=== PATIENT | female | born 1955 | race Caucasian/White ===

== ENCOUNTER 2021-12-04 00:13 | Day surgery (SDC) | payer MEDICARE, SELFPAY ==
[2021-11-21 13:59] VITALS: BMI 18.5
[2021-12-04 06:12] VITALS: BP 142/73; PULSE 79; RESP 16; TEMP 36.1; O2SAT 98; BMI 18.4
[2021-12-04] MEDS: LACTATED RINGERS 1,000 ML 150 ML IV CONT (06:38)
--- NOTE | 2021-12-04 07:23 | WPDANESEPPF ---
Anes - Initial Pre Proc Eval Procedure: Operation Date: 12/04/21 07:30 Proposed Procedures p Colonoscopy - Francisco Mcgregor MD Date/Time: 12/04/21 07:23 Surgeon: Francisco Mcgregor MD Pre Op Diagnosis: ulcerative colitis Patient Data Age: 66 Gender: F Height: 1.57 m Weight: 45.8 kg Last Vital Signs Temp 97.0 F L 12/04/21 06:12 Pulse 79 12/04/21 06:12 Resp 16 12/04/21 06:12 BP 142/73 H 12/04/21 06:12 Pulse Ox 98 12/04/21 06:12 Allergies Allergy/AdvReac Type Severity Reaction Status Date / Time [facility] Allergy Rash Verified 12/04/21 06:26 Home Medications Medication Instructions Recorded Confirmed Type alprazolam 1 mg tablet 1 mg PO TID PRN 05/03/21 12/04/21 History gabapentin 600 mg tablet 600 mg PO BID 05/03/21 12/04/21 History mesalamine 1.2 gram tablet,delayed 3.6 g PO DAILY 90 Days #270 tablet 05/03/21 12/04/21 Rx release montelukast 10 mg tablet 10 mg PO DAILY 05/03/21 12/04/21 History venlafaxine 150 mg 150 mg PO DAILY 05/03/21 12/04/21 History capsule,extended release 24 hr vedolizumab 300 mg intravenous 300 mg IV .every 8 weeks ea 10/23/21 12/04/21 History solution Patient hx anesthesia problems: none Family hx anesthesia problems: none Results Review: All pre-operative results and documents have been reviewed as part of the pre-operative evaluation. [facility] Past Medical History Medical History Crohn's colitis Headache, migraine Osteoporosis Ulcerative colitis confined to rectum Ulcerative colitis, rectosigmoid Surgical History Surgical History H/O sinus surgery H/O: hysterectomy History of thyroid surgery History of tubal ligation Family History Family History Mother Hypertension Depression Sibling Depression Son Depression Social History Social History Smoking status: Former smoker Tobacco type: cigarettes Alcohol intake: never Substance use: never Living arrangements: with family Gender identity (if verbalized by the patient): Female Sexual Orientation (if Verbalized by the Patient): Straight or Heterosexual Spiritual care concerns: No Agree to blood products: Yes Anes - Eval Final PreProcedure Day of Procedure 12/04/21 07:23 Patient weight: normal Heart: regular rate and rhythm Lungs: clear to auscultation Airway: Mallampati scale class II Neurological: alert and oriented Last oral intake: >/= 8 hours ASA classification: II Emergent: no Anesthetic plan: proceed Anesthesia type and monitoring: general GIVS and standard monitoring Results Review: All pre-operative results and documents have been reviewed as part of the pre-operative evaluation. Informed Consent: The patient's anesthetic plan and its attendant risks and benefits were discussed with the patient/family/POA. Questions were solicited and answers provided to the satisfaction of the patient/family/POA.
--- NOTE | 2021-12-04 07:25 | PM.HPGS ---
History of Present Illness History of Present Illness Consent: Risks, benefits, and alternatives have been discussed and questions answered. Patient agrees to proceed with procedure. Chief complaint: ulcerative colitis Narrative: Julissa Hong is a 66 year old female diagnosed with left sided colitis diagnosed in 2019, now on entyvio and mesalamine doing better, here to assess for mucosa healing. Review of Systems Constitutional: Constitutional: Denies headache(s) and Denies weakness Eyes: Eyes: Denies blurry vision ENT: Reports Normal hearing present, Denies headache(s) and Denies neck pain Cardiovascular: Cardiovascular: Denies chest pain and Denies dyspnea Respiratory: Respiratory: Denies dyspnea Gastrointestinal: Gastrointestinal: Reports no additional gastrointestinal complaints Genitourinary: Genitourinary: Denies dysuria Musculoskeletal: Musculoskeletal: Denies neck pain Integumentary/Breasts: Skin/Breast: Denies dry skin Neurologic: Reports Normal hearing present, Denies headache(s) and Denies weakness Psychiatric: Psychiatric: Denies anxiety Endocrine: Endocrine: Denies change in body appearance Hematologic/Lymphatic: Hematologic/Lymphatic: Denies easy bleeding Allergic/Immunologic: Allergic/Immunologic: Denies urticaria PMFSH Past Medical History Medical History Crohn's colitis Headache, migraine Osteoporosis Ulcerative colitis confined to rectum Ulcerative colitis, rectosigmoid Surgical History Surgical History H/O sinus surgery H/O: hysterectomy History of thyroid surgery History of tubal ligation Family History Family History Mother Hypertension Depression Sibling Depression Son Depression Social History Social History Smoking status: Former smoker Tobacco type: cigarettes Alcohol intake: never Substance use: never Living arrangements: with family Gender identity (if verbalized by the patient): Female Sexual Orientation (if Verbalized by the Patient): Straight or Heterosexual Spiritual care concerns: No Agree to blood products: Yes Meds Home Medications and Allergies Home Medications Medication Instructions Recorded Confirmed Type alprazolam 1 mg tablet 1 mg PO TID PRN 05/03/21 12/04/21 History gabapentin 600 mg tablet 600 mg PO BID 05/03/21 12/04/21 History mesalamine 1.2 gram tablet,delayed 3.6 g PO DAILY 90 Days #270 tablet 05/03/21 12/04/21 Rx release montelukast 10 mg tablet 10 mg PO DAILY 05/03/21 12/04/21 History venlafaxine 150 mg 150 mg PO DAILY 05/03/21 12/04/21 History capsule,extended release 24 hr vedolizumab 300 mg intravenous 300 mg IV .every 8 weeks ea 10/23/21 12/04/21 History solution Allergies Allergy/AdvReac Type Severity Reaction Status Date / Time vilazodone [From Viibryd] Allergy Rash Verified 12/04/21 06:26 Vital Signs Vital Signs - 24 hr 12/04/21 06:12 Temperature 97.0 F L Pulse Rate 79 Respiratory Rate 16 Blood Pressure 142/73 H Pulse Oximetry 98 Exam Const: General: comfortable and no acute distress HENMT: General nose exam: Normal nares present Eyes: General: appearance normal, both eyes and all related structures Neck: Neck: no JVD Resp: Auscultation: clear to auscultation bilaterally Cardio: Rate: regular rate Rhythm: regular rhythm GI: Inspection: non-distended GI Palp: Yes Soft to palpation Skin: General skin exam: normal color Neuro: General: gait normal Speech: normal speech Extrem: General: normal to inspection Psych: Mental Status: mental status grossly normal Assessment and Plan Assessment and plan (1) Ulcerative colitis, rectosigmoid: Code(s): K51.30 - Ulcerative (chronic) rectosigmoiditis without compl
[2021-12-04 07:45] VITALS: BP 103/61; PULSE 85; RESP 21; O2SAT 97
[2021-12-04 07:55] VITALS: BP 136/74; PULSE 80; RESP 24; O2SAT 98
[2021-12-04 08:05] VITALS: BP 142/77; PULSE 70; RESP 19; O2SAT 99
== END 2021-12-04 08:11 | disposition home or self-care (01) ==
PROVIDERS: PCP Family Medicine; Visit Provider Internal Medicine Gastroenterology
PROC: 0DJD8ZZ Inspection of Lower Intestinal Tract, Via Natural or Artificial Opening Endoscopic (ICD-10-PCS; CPT 45378; principal; 2021-12-04 07:30)
DX: K51.30 Ulcerative (chronic) rectosigmoiditis without complications (principal); K51.50 Left sided colitis without complications; K57.30 Diverticulosis of large intestine without perforation or abscess without bleeding; K64.8 Other hemorrhoids; K64.4 Residual hemorrhoidal skin tags; Z87.891 Personal history of nicotine dependence
CPT/HCPCS: 45380; 88305; J2704; J7120

== ENCOUNTER 2024-02-23 15:06 | Outpatient (CLI) | payer MEDICARE, SELFPAY ==
[2024-03-02 15:49] LABS: Calprotectin, Stool 23 mcg/g
== END 2024-02-23 15:07 | disposition home or self-care (01) ==
LOC: ANHLAB 15:09
PROVIDERS: PCP Family Medicine; Visit Provider Nurse Practitioner Family
DX: K51.30 Ulcerative (chronic) rectosigmoiditis without complications (principal)
CPT/HCPCS: 83993

== ENCOUNTER 2025-02-07 15:37 | Outpatient (CLI) | payer MEDICARE, SELFPAY ==
--- NOTE | 2025-02-07 | ECG_ITS ---
Test Date: 2025-02-07 15:59:34 Measurements Intervals [place] Rate: 65 P: 45 CA: 148 QRS: -5 QRSD: 86 T: 51 QT: 404 QTc: 422 Interpretive Statements SINUS RHYTHM LOW QRS VOLTAGE IN PRECORDIAL LEADS [QRS DEFLECTION < 1.0 mV IN CHEST LEADS] BORDERLINE ECG No previous ECG available for comparison Electronically Signed On 02-08-2025 07:14:02 CDT by Landon Guan M.D.
--- OUTSIDE RECORDS SUMMARY | 2025-02-07 15:44 | XMS_ITS | CONTINUITY OF CARE DOCUMENT ---
Author Name jerrod elder Address Unknown Organization [facility] Address [address] [address] [place] [address] Phone [phone] Care Team Providers Care Coater Smoking Pipe Name Role Phone Hawk Acevedo MD Unavailable CARYL THOMPSON MD Unavailable [phone] CARYL THOMPSON MD Unavailable [phone] INSURANCE PROVID[employer] Payer name Policy type / Coverage type [place] red democrat ID [facility] [id number]
--- OUTSIDE RECORDS SUMMARY | 2025-02-07 15:45 | XMS_ITS | Data Portability ---
Author Organization [facility] [employer], Main Office Address [address] [place] [address] Assessment No assessment recorded. Plan of Treatment Reminders Order Date Submit Date Provider Last Modified By Organization Details Last Modified Time Details Appointments None recorded. Lab urinalysis complete, reflex culture 2023 024 IAN Not available 03:35:00 urinalysis, dipstick 2023 024 [email or web address] [facility] [address], [place], [address], 4 14:41:01 lipid panel, serum 2022 023 IAN Not available 19:45:59 hepatic function panel, serum 2022 023 [email or web address] Not available 08:15:21 vitamin D, 25-hydroxy, total, serum 2022 023 IAN Not available 3 07:41:36 iron + total iron-bindin g capacity (TIBC), serum 2022 023 IAN Not available 20:29:25 ferritin, serum or plasma 2022 023 IAN Not available 21:02:35 CBC w/ auto diff 2022 023 IAN Not available 19:22:12 TSH, serum or plasma 2022 023 IAN Not available 21:01:24 hepatic function panel, serum 2022 IAN Not available 19:45:49 erythrocyte sedimentati on rate by westergren method 2022 IAN Not available 07:42:02 vitamin B12, serum 2022 IAN Not available 20:43:00 folate, serum 2022 IAN Not available 20:43:06 Referral None recorded. Procedures None recorded. Surgeries None recorded. Imaging MAMMO, screening, digital, bilateral [address] ([facility]), [address] [place], [address], 4 09:25:13 MAMMO, screening, digital, bilateral [address] ([facility]), [address] [place], [address], 4 08:56:30 DEXA 2022 023 [facility] ([facility]), [address] [place], [address], 4 14:39:34 Medication Orders nitrofurant oin monohydrate /macrocryst als 100 mg capsule 2023 024 [id number], [address] [place], [place], [id number], 4 14:43:54 gabapentin 600 mg tablet 2023 024 [facility] #[id number], [address] [place], [place], [id number], 4 14:50:44 venlafaxine ER 150 mg capsule,ext ended release 24 hr 2023 024 [facility]29495, [address], [place], [place], [id number], 14:50:45 Patient TargetsNo targets recorded. Patient Instructions Encounter Date Encounter Id Patient Instructions Last Modified By Organization Details Last Modified Time 01/27/2023 [id number] dementia rating scale-2* Not available 01/28/2023 12:13:48 multi-dimensiona l health assessment questionnaire* Not available 01/28/2023 12:13:57 [facility] Plan and Screening Recommendations Advance Directives - Do you have one? Advance Directives - Do we have your advance directive on file in your health record? Primary Prevention/Interven tion (prevents or decreases the chance of common diseases from occurring) Smoking Risk: Alcohol Misuse Screening: Weight: Physical activity: Nutrition: Fall Risk (screened today): Vaccines Pneumococcal: Influenza: Chronic Disease Risks Stroke: I have no recommendations Act adis diagnosis, Continue current treatment plan Heart Attack: I have no recommendations Act adis diagnosis, Continue current treatment plan Clogging of the Arteries: I have no recommendations Act adis diagnosis, Continue current treatment plan Diabetes: Active diagnosis, Continue current treatment plan Secondary Prevention/Interven tion (detects treatable diseases before they may cause symptoms, disability, or ) Breast Cancer Screening with mammogram: Your next mammogram: Ordered Cervical/Uterine/Ov kamlesh Cancer Screening: Osteoporosis Screening: Your next DEXA in: Ordered Date Screening Last Performed: Colon Cancer Screening: Date Screening Last Performed: Eye Disease Screening: Dementia Risk: Depression Screening: Active diagnosis, Continue current treatment plan Not available 01/28/2023 08:26:14 02/01/2024 [id number] [facility] Plan and Screening Recommendations Advance Directives - Do you have one? Advance Directives - Do we have your advance directive on file in your health record? Primary Prevention/Interven tion (prevents or decreases the chance of common diseases from occurring) Smoking Risk: Alcohol Misuse Screening: Weight: Physical activity: Nutrition: Fall Risk (screened today): Vaccines Pneumococcal: Influenza: Your next one in the fall of this year Chronic Disease Risks Stroke: I have no recommendations Act adis diagnosis, Continue current treatment plan Heart Attack: I have no recommendations Act adis diagnosis, Continue current treatment plan Clogging of the Arteries: I have no recommendations Act adis diagnosis, Continue current treatment plan Diabetes: Active diagnosis, Continue current treatment plan Secondary Prevention/Interven tion (detects treatable diseases before they may cause symptoms, disability, or ) Breast Cancer Screening with mammogram: Cervical/Uterine/Ov akmlesh Cancer Screening: Osteoporosis Screening: Date Screening Last Performed: Colon Cancer Screening: Date Screening Last Performed: Eye Disease Screening: Dementia Risk: Depression Screening: Active diagnosis, Continue current treatment plan Not available 02/01/2024 14:51:49 Reason for Referral None Reported. Results Created Date Observation Date Name Description Value Unit Range Abnormal Flag Note LastModifiedBy Organization Detail LastModifiedTime 08/22/20 22 08/23/2022 VITAM IN D,25- OH,TO NATHAN,I A vitamin D,25-oh,tota l,ia 56 NG/mL 30-100 normal Vitam in D Statu s 25-OH Vitam in D: Defic iency : <20 ng/mL Insuf ficie ncy: 20 - 29 ng/mL Optim al: > or = 30 ng/mL For 25-OH Vitam in D testi ng on patie nts on D2-brumfield pplem entat ion and patie nts for whom quant itati on of D2 and D3 fract ions is requi red, the [facility] Assur eD(TM ) 25-OH VIT D, (D2,D 3), LC/MS /MS is recom catrachita d: order code 81155 (rubina ents >2yrs ). See Note 1 Note 1 For addit ional infor sher abdi refer to http: //merle Cervantes stDchristin gnost ics.c om/fa q/FAQ 199 (This link is being provi ded for infor magno mata/ educkarla murcia l purpo ses only. ) Not Available [facility] [address], [address], 08/23/2022 07:46:54 08/22/20 22 08/23/2022 CBC (INCL UDES DIFF/ PLT) white blood cell count 6.5 thous and/u L 3.8-10 .8 normal Not Available [address], [address], 08/23/2022 07:46:53 08/22/20 22 08/23/2022 CBC (INCL UDES DIFF/ PLT) red blood cell count 3.77 ranjan on/uL 3.80-5 .10 low Not Available [address], [address], 08/23/2022 07:46:53 08/22/20 22 08/23/2022 CBC (INCL UDES DIFF/ PLT) hemoglobin 11.9 g/dL 11.7-1 5.5 normal Not Available [address], [address], 08/23/2022 07:46:53 08/22/20 22 08/23/2022 CBC (INCL UDES DIFF/ PLT) hematocrit 35.0 % 35.0-4 5.0 normal Not Available [address], [address], 08/23/2022 07:46:53 08/22/20 22 08/23/2022 CBC (INCL UDES DIFF/ PLT) RDW 11.4 % 11.0-1 5.0 normal Not Available [address], [address], 08/23/2022 07:46:53 08/22/20 22 08/23/2022 CBC (INCL UDES DIFF/ PLT) MCV 92.8 fL 80.0-1 00.0 normal Not Available [employer] [address], [address], 08/23/2022 07:46:53 08/22/20 22 08/23/2022 CBC (INCL UDES DIFF/ PLT) MCH 31.6 pg 27.0-3 3.0 normal Not Available [address], [address], 08/23/2022 07:46:53 08/22/20 22 08/23/2022 CBC (INCL UDES DIFF/ PLT) MCHC 34.0 g/dL 32.0-3 6.0 normal Not Available [address], [address], 08/23/2022 07:46:53 08/22/20 22 08/23/2022 CBC (INCL UDES DIFF/ PLT) platelet count 319 thous and/u L 140-40 0 normal Not Available [address], [address], 08/23/2022 07:46:53 08/22/20 22 08/23/2022 CBC (INCL UDES DIFF/ PLT) MPV 10.4 fL 7.5-12 .5 normal Not Available [address], [address], 08/23/2022 07:46:53 08/22/20 22 08/23/2022 CBC (INCL UDES DIFF/ PLT) absolute neutrophils 3978 cells /uL 1500-7 800 normal Not Available [address], [address], 08/23/2022 07:46:53 08/22/20 22 08/23/2022 CBC (INCL UDES DIFF/ PLT) absolute lymphocytes 1859 cells /uL 850-39 00 normal Not Available [address], [address], 08/23/2022 07:46:53 08/22/20 22 08/23/2022 CBC (INCL UDES DIFF/ PLT) absolute monocytes 410 cells /uL 200-95 0 normal Not Available [address] [place], [address], 08/23/2022 07:46:53 08/22/20 22 08/23/2022 CBC (INCL UDES DIFF/ PLT) absolute eosinophils 163 cells /uL 15-500 normal Not Available [address], [address], 08/23/2022 07:46:53 08/22/20 22 08/23/2022 CBC (INCL UDES DIFF/ PLT) absolute basophils 91 cells /uL 0-200 normal Not Available [address], [address], 08/23/2022 07:46:53 08/22/20 22 08/23/2022 CBC (INCL UDES DIFF/ PLT) neutrophils 61.2 % normal Not Available [address], [address], 08/23/2022 07:46:53 08/22/20 22 08/23/2022 CBC (INCL UDES DIFF/ PLT) lymphocytes 28.6 % normal Not Available [address], [address], 08/23/2022 07:46:53 08/22/20 22 08/23/2022 CBC (INCL UDES DIFF/ PLT) monocytes 6.3 % normal Not Available [address], [address], 08/23/2022 07:46:53 08/22/20 22 08/23/2022 CBC (INCL UDES DIFF/ PLT) eosinophils 2.5 % normal Not Available [address], [address], 08/23/2022 07:46:53 08/22/20 22 08/23/2022 CBC (INCL UDES DIFF/ PLT) basophils 1.4 % normal Not Available [facility] [address], [place], [address], 08/23/2022 07:46:53 08/22/20 22 08/23/2022 HEPAT IC FUNCT ION PANEL protein, total 6.6 g/dL 6.1-8. 1 normal Not Available [address], [address], 08/23/2022 07:46:52 08/22/20 22 08/23/2022 HEPAT IC FUNCT ION PANEL albumin 4.2 g/dL 3.6-5. 1 normal Not Available [address], [address], 08/23/2022 07:46:52 08/22/20 22 08/23/2022 HEPAT IC FUNCT ION PANEL globulin 2.4 g/dL_ (calc ) 1.9-3. 7 normal Not Available [address], [address], 08/23/2022 07:46:52 08/22/20 22 08/23/2022 HEPAT IC FUNCT ION PANEL albumin/glob ulin ratio 1.8 (calc ) 1.0-2. 5 normal Not Available [address], [address], 08/23/2022 07:46:52 08/22/20 22 08/23/2022 HEPAT IC FUNCT ION PANEL bilirubin, total 0.3 mg/dL 0.2-1. 2 normal Not Available [address], [address], 08/23/2022 07:46:52 08/22/20 22 08/23/2022 HEPAT IC FUNCT ION PANEL bilirubin, direct 0.1 mg/dL < or = 0.2 normal Not Available [address], [address], 08/23/2022 07:46:52 08/22/20 22 08/23/2022 HEPAT IC FUNCT ION PANEL bilirubin, indirect 0.2 mg/dL _(zeferino c) 0.2-1. 2 normal Not Available [address], [address], 08/23/2022 07:46:52 08/22/20 22 08/23/2022 HEPAT IC FUNCT ION PANEL alkaline phosphatase 69 U/L 37-153 normal Not Available [facility] [email or web address] [address] [address] [place], [address], 08/23/2022 07:46:52 08/22/20 22 08/23/2022 HEPAT IC FUNCT ION PANEL AST 19 U/L 10-35 normal Not Available [address], [address], 08/23/2022 07:46:52 08/22/20 22 08/23/2022 HEPAT IC FUNCT ION PANEL ALT 16 U/L 6-29 normal Not Available [address] [address] [place], [address], 08/23/2022 07:46:52 08/22/20 22 08/23/2022 BASIC METAB OLIC PANEL glucose 95 mg/dL 65-139 normal Non-f astin g refer ence inter chandni Not Available [address], [address], 08/23/2022 07:46:52 08/22/20 22 08/23/2022 BASIC METAB OLIC PANEL urea nitrogen (BUN) 10 mg/dL 7-25 normal Not Available [address], [address], 08/23/2022 07:46:52 08/22/20 22 08/23/2022 BASIC METAB OLIC PANEL creatinine 0.58 mg/dL 0.50-1 .05 normal Not Available [address], [address], 08/23/2022 07:46:52 08/22/20 22 08/23/2022 BASIC METAB OLIC PANEL eGFR 99 mL/mi n/1.7 3m2 > or = 60 normal The eGFR is based on the CKD-E PI 2020 equat ion. To calcu late the new eGFR from a previ ous Creat inine or Cysta tin C resul t, go to https ://chante wolfe.sebastian phillips.o leighann/lorie hongal s/ kdoqi /gfr% 5Fcal culat or Not Available [employer] [address] [address] [place], [address], 08/23/2022 07:46:52 08/22/20 22 08/23/2022 BASIC METAB OLIC PANEL BUN/creatini ne ratio not applic able (calc ) 6-22 Not Available [address] [address] [place], [address], 08/23/2022 07:46:52 08/22/20 22 08/23/2022 BASIC METAB OLIC PANEL sodium 141 mmol/ L 135-14 6 normal Not Available [employer] [address] [address] [place], [address], 08/23/2022 07:46:52 08/22/20 22 08/23/2022 BASIC METAB OLIC PANEL potassium 4.1 mmol/ L 3.5-5. 3 normal Not Available [employer] [address] [address] [place], [address], 08/23/2022 07:46:52 08/22/20 22 08/23/2022 BASIC METAB OLIC PANEL chloride 104 mmol/ L 98-110 normal Not Available [employer] [address] [address] [place], [address], 08/23/2022 07:46:52 08/22/20 22 08/23/2022 BASIC METAB OLIC PANEL carbon dioxide 32 mmol/ L 20-32 normal Not Available [employer] [address] [address] [place], [address], 08/23/2022 07:46:52 08/22/20 22 08/23/2022 BASIC METAB OLIC PANEL calcium 9.5 mg/dL 8.6-10 .4 normal Not Available [address], [address], 08/23/2022 07:46:52 08/22/20 22 08/23/2022 LIPID PANEL , STAND EDNA LDL-choleste rol 146 mg/dL _(zeferino c) high Refer ence range : <100 Purnima able range <100 mg/dL for prima ry preve ntion ; <70 mg/dL for patie nts with CHD or diabe tic patie nts with > or = 2 CHD risk facto rs. LDL-C is now calcu lated using the Aziza n-Hop kins calcu latio n, which is a valid ated novel sharee yosti aggie de la fuentete r accur acy than the Fried felicity equat ion in the estim ation of LDL-C . Aziza carney SS et al. RICKY. 2013; 310(1 9): 2061- 2068 (http ://ed ucati on.Qu romarioLogicLoop. com/f aq/FA Q164) Not Available [address], [address], 08/23/2022 07:46:51 08/22/20 22 08/23/2022 LIPID PANEL , STAND EDNA cholesterol, total 230 mg/dL <200 high Not Available [address], [address], 08/23/2022 07:46:51 08/22/20 22 08/23/2022 LIPID PANEL , STAND EDNA HDL cholesterol 54 mg/dL > or = 50 normal Not Available [address], [address], 08/23/2022 07:46:51 08/22/20 22 08/23/2022 LIPID PANEL , STAND EDNA triglyceride s 167 mg/dL <150 high Not Available [address] [address] [place], [address], 08/23/2022 07:46:51 08/22/20 22 08/23/2022 LIPID PANEL , STAND EDNA chol/HDLC ratio 4.3 (calc ) <5.0 normal Not Available [facility] [address] [place], [address], 08/23/2022 07:46:51 08/22/20 22 08/23/2022 LIPID PANEL , STAND EDNA non HDL cholesterol 176 mg/dL _(zeferino c) <130 high For patie nts with diabe antione plus 1 major ASCVD risk facto r, treat ing to a non-H DL-C goal of <100 mg/dL (LDL- C of <70 mg/dL ) is consi dered a thera peuti c optio n. Not Available [facility] [address] [address] , [place], [address], 08/23/2022 07:46:51 07/29/20 23 07/29/2023 CBC/C OMPLE TE BLD COUNT W/DIF F white blood cells 5.7 x10'3 /uL 4.2-10 .8 Not Available [facility] (Lab) [address] [place], [address], 07/29/2023 19:22:12 07/29/20 23 07/29/2023 CBC/C OMPLE TE BLD COUNT W/DIF F red blood cells 4.00 x10'6 /uL 3.80-5 .20 Not Available [facility] (Lab) [address] [place], [address], 07/29/2023 19:22:12 07/29/20 23 07/29/2023 CBC/C OMPLE TE BLD COUNT W/DIF F hemoglobin 12.7 g/dL 12.0-1 5.6 Not Available [facility] (Lab) [address] [place], [address], 07/29/2023 19:22:12 07/29/20 23 07/29/2023 CBC/C OMPLE TE BLD COUNT W/DIF F hematocrit 39.0 % 35.7-4 5.7 Not Available [facility] (Lab) [address] [place], [address], 07/29/2023 19:22:12 07/29/2007/29/2023 CBC/C OMPLE TE BLD COUNT W/DIF F mean red cell volume 97.5 fL 82.0-9 9.0 Not Available [facility] (Lab) [address] [place], [address], 07/29/2023 19:22:12 07/29/2007/29/2023 CBC/C OMPLE TE BLD COUNT W/DIF F mean red cell hemoglobin 31.8 pg 27.0-3 3.0 Not Available [facility] (Lab) [address] [place], [address], 07/29/2023 19:22:12 07/29/2007/29/2023 CBC/C OMPLE TE BLD COUNT W/DIF F mean RBC HGB concentratio n 32.6 g/dL 31.0-3 6.0 Not Available [facility] (Lab) [address] [place], [address], 07/29/2023 19:22:12 07/29/2007/29/2023 CBC/C OMPLE TE BLD COUNT W/DIF F red cell distribution width 12.3 % 11.8-1 5.5 Not Available [facility] (Lab) [address] [place], [address], 07/29/2023 19:22:12 07/29/20 23 07/29/2023 CBC/C OMPLE TE BLD COUNT W/DIF F platelets 330 x10'3 /uL 150-40 0 Not Available [facility] (Lab) [address] [place], [address], 07/29/2023 19:22:12 07/29/2007/29/2023 CBC/C OMPLE TE BLD COUNT W/DIF F mean platelet volume 10.7 fL 9.0-12 .4 Not Available [facility] (Lab) [address] [place], [address], 07/29/2023 19:22:12 07/29/2007/29/2023 CBC/C OMPLE TE BLD COUNT W/DIF F neutrophils 56.8 % 39.0-7 2.0 Not Available [facility] (Lab) [address] [place], [address], 07/29/2023 19:22:12 07/29/2007/29/2023 CBC/C OMPLE TE BLD COUNT W/DIF F lymphocytes 31.1 % 16.0-4 7.0 Not Available [facility] (Lab) [address] [place], [address], 07/29/2023 19:22:12 07/29/2007/29/2023 CBC/C OMPLE TE BLD COUNT W/DIF F monocytes 7.3 % 5.0-12 .0 Not Available [facility] (Lab) [address] [place], [address], 07/29/2023 19:22:12 07/29/2007/29/2023 CBC/C OMPLE TE BLD COUNT W/DIF F eosinophils 3.3 % 1.0-7. 0 Not Available [facility] (Lab) [address] [place], [address], 07/29/2023 19:22:12 07/29/20 23 07/29/2023 CBC/C OMPLE TE BLD COUNT W/DIF F basophils 1.2 % 0.0-2. 0 Not Available [facility] (Lab) [address] [place], [address], 07/29/2023 19:22:12 07/29/2007/29/2023 CBC/C OMPLE TE BLD COUNT W/DIF F immature granulocytes 0.3 % 0.00-0 .50 Not Available [facility] (Lab) [address] [place], [address], 07/29/2023 19:22:12 07/29/2007/29/2023 CBC/C OMPLE TE BLD COUNT W/DIF F neutrophils, absolute count 3.24 x10'3 /uL 1.5-8. 0 Not Available [facility] (Lab) [address] [place], [address], 07/29/2023 19:22:12 07/29/2007/29/2023 CBC/C OMPLE TE BLD COUNT W/DIF F lymphocytes, absolute count 1.78 x10'3 /uL 1.07-3 .43 Not Available [facility] (Lab) [address] [place], [address], 07/29/2023 19:22:12 07/29/2007/29/2023 CBC/C OMPLE TE BLD COUNT W/DIF F monocytes, absolute count 0.42 x10'3 /uL 0.29-0 .99 Not Available [facility] (Lab) [address] [place], [address], 07/29/2023 19:22:12 07/29/20 23 07/29/2023 CBC/C OMPLE TE BLD COUNT W/DIF F eosinophils, absolute count 0.19 x10'3 /uL 0.02-0 .53 Not Available [facility] (Lab) [address] [place], [address], 07/29/2023 19:22:12 07/29/20 23 07/29/2023 CBC/C OMPLE TE BLD COUNT W/DIF F basophils, absolute count 0.07 x10'3 /uL 0.01-0 .08 Not Available [facility] (Lab) [address] [place], [address], 07/29/2023 19:22:12 07/29/20 23 07/29/2023 CBC/C OMPLE TE BLD COUNT W/DIF F immature granulocytes ,absolute 0.02 x10'3 /uL 0.00-0 .05 Not Available [facility] (Lab) [address] [place], [address], 07/29/2023 19:22:12 07/29/20 23 07/29/2023 CBC/C OMPLE TE BLD COUNT W/DIF F nucleated red blood cells 0.0 % -0 Not Available [facility] (Lab) [address] [place], [address], 07/29/2023 19:22:12 07/29/20 23 07/29/2023 CBC/C OMPLE TE BLD COUNT W/DIF F NRBC# 0.00 x10'3 /uL Not Available [facility] (Lab) [address] [place], [address], 07/29/2023 19:22:12 07/29/20 23 07/29/2023 SEDIM ENTAT ION RATE erythrocyte sedimentatio n rate 34 mm/HR 0-20 high Not Available Not Available 07/06 19:26:54 07/29/2007/29/2023 HEPAT IC/LI AJITH PANEL alkaline phosphatase 79 U/L 38-126 Not Available [facility] (Lab) [address] [place], [address], 07/29/2023 19:45:49 07/29/20 23 07/29/2023 HEPAT IC/LI AJITH PANEL alanine aminotransfe rase 24 U/L 0-35 Not Available [facility] (Lab) [address] [place], [address], 07/29/2023 19:45:49 07/29/2007/29/2023 HEPAT IC/LI AJITH PANEL aspartate aminotransfe rase 28 U/L 15-37 Not Available [facility] (Lab) [address] [place], [address], 07/29/2023 19:45:49 07/29/2007/29/2023 HEPAT IC/LI AJITH PANEL bilirubin, total 0.30 mg/dL 0.20-1 .30 Not Available [facility] (Lab) [address] [place], [address], 07/29/2023 19:45:49 07/29/2007/29/2023 HEPAT IC/LI AJITH PANEL bilirubin, conjugated (direct) 0.00 mg/dL 0.00-0 .30 Not Available [facility] (Lab) [address] [place], [address], 07/29/2023 19:45:49 07/29/2007/29/2023 HEPAT IC/LI AJITH PANEL biliurubin,u ncong. (indirect) 0.10 mg/dL 0.00-1 .1 Not Available [facility] (Lab) [address] [place], [address], 07/29/2023 19:45:49 07/29/2007/29/2023 HEPAT IC/LI AJITH PANEL total protein 7.1 g/dL 6.3-8. 2 Not Available [facility] (Lab) [address] [place], [address], 07/29/2023 19:45:49 07/29/2007/29/2023 HEPAT IC/LI AJITH PANEL albumin 4.1 g/dL 3.0-4. 4 Not Available [facility] (Lab) [address] [place], [address], 07/29/2023 19:45:49 07/29/2007/29/2023 HEPAT IC/LI AJITH PANEL globulin 3.0 g/dL 2.6-4. 2 Not Available [facility] (Lab) [address] [place], [address], 07/29/2023 19:45:49 07/29/2007/29/2023 HEPAT IC/LI AJITH PANEL A/G ratio 1.4 ratio 1.0-2. 0 Not Available [facility] (Lab) [address] [place], [address], 07/29/2023 19:45:49 07/29/2007/29/2023 LIPID PANEL cholesterol 257 mg/dL 140-19 9 high NIH KATHIE NSUS RECOM MENDA TION FOR FREDRICK STERO L: ADULT CHILD LOW RISK: <200 <170 BORDE RLINE : <200- 239 ----- HIGH RISK: >240 >200 Not Available [facility] (Lab) [address] [place], [address], 07/29/2023 19:45:59 07/29/2007/29/2023 LIPID PANEL triglyceride s 178 mg/dL 0-150 high NIH KATHIE NSUS REPOR T RECOM MENDA TION FOR TRIGL YCERI MURRAY: ADULT CHILD LOW RISK: <150 ----- BODER LINE: 150-1 99 ----- HIGH RISK: >200 ----- Not Available [facility] (Lab) [address] [place], [address], 07/29/2023 19:45:59 07/29/2007/29/2023 LIPID PANEL HDL cholesterol 54 mg/dL 40- Not Available [facility] (Lab) [address] [place] [address], [address], 07/29/2023 19:45:59 07/29/2007/29/2023 LIPID PANEL LDL cholesterol, calculated 167 mg/dL 0-130 high NIH KATHIE NSUS REPOR T RECOM MENDA TIONS FOR LDL: ADULT CHILD LOW RISK <130 <110 (OPTI MAL LDL) <100 ----- BORDE RLINE : 130-1 59 ----- HIGH RISK: >160 >130 A TRIGL YCERI DE RESUL T >400 INVAL IDATE S THE CALCU LATIO N FOR LDL FRACT IONAT ION - THE LDL RESUL T WILL NOT BE REPOR GUILLERMINA. Not Available [facility] (Lab) [address] [place], [address], 07/29/2023 19:45:59 07/29/2007/29/2023 VITAM IN D 25-HY DROXY vd25oh 67.4 NG/mL 30-100 Vitam in D Statu s: Defic ient: <20 ng/mL Insuf ficie nt: 20-29 ng/mL Suffi cient : 30-10 0 ng/mL Not Available Not Available 07/29/2023 19:53:46 07/29/2007/29/2023 IRON/ TIBC PANEL total iron binding capacity 271 mcg/d L 265-47 5 Not Available [facility] (Lab) [address] [place], [address], 07/29/2023 20:44:47 07/29/2007/29/2023 IRON/ TIBC PANEL % transferrin saturation 27 % 20-55 Not Available [facility] (Lab) [address] [place], [address], 07/29/2023 20:44:47 07/29/2007/29/2023 IRON/ TIBC PANEL unsaturated iron bind capacity 198 mcg/d L 126-38 2 Not Available [facility] (Lab) [address] [place], [address], 07/29/2023 20:44:47 07/29/2007/29/2023 IRON/ TIBC PANEL iron 73 mcg/d L 42-175 Not Available [facility] (Lab) [address] [place], [address], 07/29/2023 20:44:47 07/29/2007/29/2023 VITAM IN B12 (DANIS HOLLY ) vb12 835 pg/mL 239-93 1 Not Available [facility] (Lab) [address] [place], [address], 07/29/2023 20:43:00 07/29/20 23 07/29/2023 FOLAT E, SERUM /PLAS MA folate >20.0 NG/mL 2.76-2 0.0 Not Available [facility] (Lab) [address] [place], [address], 07/29/2023 20:43:06 07/29/2007/29/2023 TSH thyroid-stim ulating hormone 0.464 uIU/m L 0.465- 4.680 low Not Available [facility] (Lab) [address] [place], [address], 07/29/2023 21:01:24 07/29/2007/29/2023 TESFAYE TIN ferritin 25 NG/mL 11.1-2 64 Not Available [facility] (Lab) [address] [place], [address], 07/29/2023 21:02:35 10/02/20 23 10/09/2023 TSI (THYR OID STIMU LATIN G IMMUN OGLOB ULIN) tsi <89 %_bas glory <140 Thyro id stimu latin g immun oglob ulins (TSI) can engag e the TSH glassware verifier tors resul ting in hyper thyro idism in [facility]' disea se patie nts. TSI level s can be usefu l in monit oring the clini zeferino outco me of [facility]' disea se as well as asses sing the poten tial for hyper thyro idism from mater nal-f etal trans meghan. TSI resul ts great er than or equal to (>=) 140% of the Refer ence Contr ol are consi dered posit adis. NOTE: A serum TSH level great er than 350 micro -Inte rnati onal Units /mL can inter fere with the TSI bioas say and poten tiall y give false posit adis resul ts. Patie nts who are pregn ant and are suspe cted of havin g hyper thyro idism shoul d have both TSI and human Chori onic Gonad otrop in (hCG) tests measu red. A serum hCG level great er than 40,62 5 mIU/m L can inter fere with the TSI bioas say and may give false negat adis resul ts. In these patie nts it is recom catrachita d that a secon d TSI be obtai juwan when the hCG kathie ntrat ion falls below 40,62 5 mIU/m L (usua lly after appro ximat john 20-we eks gesta tion) . The john tical perfo rmanc e meghan cteri stics of this assay have been deter mined by [facility] . The modif icati ons have not been clear ed or appro yaw by the FDA. This assay has been valid ated pursu ant to the CLIA regul ation s and is used for clini zeferino purpo ses. Not Available [facility] [address], [address], 10/09/2023 21:02:51 10/02/20 23 10/09/2023 THYRO ID PEROX IDASE ANTIB ODIES thyroid peroxidase antibodies 1 IU/mL <9 Not Available [facility] [address] [place], [address], 10/09/2023 21:02:52 10/02/20 23 10/09/2023 T4, FREE T4, free 0.9 NG/dL 0.8-1. 8 normal Not Available [facility] [address], [address], 10/09/2023 21:02:53 10/02/20 23 10/09/2023 TSH TSH 1.35 mIU/L 0.40-4 .50 normal Not Available [facility] [address] [place], [address], 10/09/2023 21:02:54 02/01/20 24 02/01/2024 URINA LYSIS COMPL ETE/I RIS W/RFX color YELLOW Not Available [facility] (Lab) [address] [place], [address], 02/01/2024 21:27:11 02/01/20 24 02/01/2024 URINA LYSIS COMPL ETE/I RIS W/RFX appear TURBID abnormal Not Available [facility] (Lab) [address] [place], [address], 02/01/2024 21:27:11 02/01/20 24 02/01/2024 URINA LYSIS COMPL ETE/I RIS W/RFX specific gravity 1.010 1.001- 1.030 Not Available [facility] (Lab) [address] [place], [address], 02/01/2024 21:27:11 02/01/20 24 02/01/2024 URINA LYSIS COMPL ETE/I RIS W/RFX pH 6.0 pH_un its 5.0-9. 0 Not Available [facility] (Lab) [address] [place], [address], 02/01/2024 21:27:11 02/01/20 24 02/01/2024 URINA LYSIS COMPL ETE/I RIS W/RFX leukocytes >/=500 gisella/u L negati ve- abnormal Not Available [facility] (Lab) [address] [place], [address], 02/01/2024 21:27:11 02/01/20 24 02/01/2024 URINA LYSIS COMPL ETE/I RIS W/RFX nitrite NEGATI VE negati ve- Not Available [facility] (Lab) [address] [place], [address], 02/01/2024 21:27:11 02/01/20 24 02/01/2024 URINA LYSIS COMPL ETE/I RIS W/RFX protein NEGATI VE mg/dL negati ve- Not Available [facility] (Lab) [address] [place], [address], 02/01/2024 21:27:11 02/01/20 24 02/01/2024 URINA LYSIS COMPL ETE/I RIS W/RFX glucose NORMAL mg/dL normal - Not Available [facility] (Lab) [address] [place], [address], 02/01/2024 21:27:11 02/01/20 24 02/01/2024 URINA LYSIS COMPL ETE/I RIS W/RFX ketones NEGATI VE mg/dL negati ve- Not Available [facility] (Lab) [address] [place], [address], 02/01/2024 21:27:11 02/01/20 24 02/01/2024 URINA LYSIS COMPL ETE/I RIS W/RFX urobilinogen NORMAL mg/dL normal - Not Available [facility] (Lab) [address] [place], [address], 02/01/2024 21:27:11 02/01/20 24 02/01/2024 URINA LYSIS COMPL ETE/I RIS W/RFX bilirubin NEGATI VE mg/dL negati ve- Not Available [facility] (Lab) [address] [place], [address], 02/01/2024 21:27:11 02/01/20 24 02/01/2024 URINA LYSIS COMPL ETE/I RIS W/RFX blood NEGATI VE mg/dL negati ve- abnormal Not Available [facility] (Lab) [address] [place], [address], 02/01/2024 21:27:11 02/01/20 24 02/01/2024 URINA LYSIS COMPL ETE/I RIS W/RFX color YELLOW Not Available [facility] (Lab) [address] [place], [address], 02/01/2024 21:35:02 02/01/20 24 02/01/2024 URINA LYSIS COMPL ETE/I RIS W/RFX appear TURBID abnormal Not Available [facility] (Lab) [address] [place], [address], 02/01/2024 21:35:02 02/01/20 24 02/01/2024 URINA LYSIS COMPL ETE/I RIS W/RFX specific gravity 1.010 1.001- 1.030 Not Available [facility] (Lab) [address] [place], [address], 02/01/2024 21:35:02 02/01/20 24 02/01/2024 URINA LYSIS COMPL ETE/I RIS W/RFX pH 6.0 pH_un its 5.0-9. 0 Not Available [facility] (Lab) [address] [place], [address], 02/01/2024 21:35:02 02/01/20 24 02/01/2024 URINA LYSIS COMPL ETE/I RIS W/RFX leukocytes >/=500 gisella/u L negati ve- abnormal Not Available [facility] (Lab) [address] [place], [address], 02/01/2024 21:35:02 02/01/20 24 02/01/2024 URINA LYSIS COMPL ETE/I RIS W/RFX nitrite NEGATI VE negati ve- Not Available [facility] (Lab) [address] [place], [address], 02/01/2024 21:35:02 02/01/20 24 02/01/2024 URINA LYSIS COMPL ETE/I RIS W/RFX protein NEGATI VE mg/dL negati ve- Not Available [facility] (Lab) [address] [place], [address], 02/01/2024 21:35:02 02/01/20 24 02/01/2024 URINA LYSIS COMPL ETE/I RIS W/RFX glucose NORMAL mg/dL normal - Not Available [facility] (Lab) [address] [place], [address], 02/01/2024 21:35:02 02/01/20 24 02/01/2024 URINA LYSIS COMPL ETE/I RIS W/RFX ketones NEGATI VE mg/dL negati ve- Not Available [facility] (Lab) [address] [place], [address], 02/01/2024 21:35:02 02/01/20 24 02/01/2024 URINA LYSIS COMPL ETE/I RIS W/RFX urobilinogen NORMAL mg/dL normal - Not Available [facility] (Lab) [address] [place], [address], 02/01/2024 21:35:02 02/01/20 24 02/01/2024 URINA LYSIS COMPL ETE/I RIS W/RFX bilirubin NEGATI VE mg/dL negati ve- Not Available [facility] (Lab) [address] [place], [address], 02/01/2024 21:35:02 02/01/20 24 02/01/2024 URINA LYSIS COMPL ETE/I RIS W/RFX blood NEGATI VE mg/dL negati ve- Not Available [facility] (Lab) [address] [place], [address], 02/01/2024 21:35:02 02/01/20 24 02/01/2024 URINA LYSIS COMPL ETE/I RIS W/RFX white blood cells 21-40 /i??h pfi?? 0-8 abnormal Not Available [facility] (Lab) [address] [place], [address], 02/01/2024 21:35:02 02/01/20 24 02/01/2024 URINA LYSIS COMPL ETE/I RIS W/RFX red blood cells 0-4 /i??h pfi?? 0-4 Not Available [facility] (Lab) [address] [place], [address], 02/01/2024 21:35:02 02/01/20 24 02/01/2024 URINA LYSIS COMPL ETE/I RIS W/RFX bacteria OCCASI ONAL abnormal Not Available [facility] (Lab) [address] [place], [address], 02/01/2024 21:35:02 02/01/20 24 02/01/2024 URINA LYSIS COMPL ETE/I RIS W/RFX mucous OCCASI ONAL /i??l pfi?? abnormal Not Available [facility] (Lab) [address] [place], [address], 02/01/2024 21:35:02 02/01/20 24 02/01/2024 URINA LYSIS COMPL ETE/I RIS W/RFX squamous epithelial MANY /i??l pfi?? abnormal Not Available [facility] (Lab) [address] [place], [address], 02/01/2024 21:35:02 02/01/20 24 02/01/2024 CULTU RE URINE urc ===== ===== ===== ===== ===== ===== ===== ===== ===== ===== ===== ===== ===== ===== ===== ===== ===== ===== ===== ===== ===== ===== ===== ===== Speci men NO.: [id number] Exam Statu s: Final Proce dure: CULTU RE URINE ===== ===== ===== ===== ===== ===== ===== ===== ===== ===== ===== ===== ===== ===== ===== ===== ===== ===== ===== ===== ===== ===== ===== ===== Iso/R esult : 01 Esche maday a coli Antim icrob ic/Do se ASHLEY Syste ashley Urine __ ___ ___ Ampic illin <=8 S S Aztre onam <=4 S S Cefot axime <=2 Cipro floxa venkata <=0.2 5 S S Ertap enem <=0.5 SSUP SRES LTS SED RESU Genta micin <=2 [place] [id number] Oxida se React ion N Extra Sensi tive Be NEG Amp/S ulbac chapin <=8/4 S S Ceftr iaxon e <=1 S S Cefta zidim e <=1 S S Cefta zidim e/K Clav <=0.2 5 SUPP RESS Cefot axime /K Clavu <=0.5 SUPP RESS Cefaz wendy <=2 S S Cefep elvin <=2 S S Cefur oxime <=4 S S Levof loxac in <=0.5 S S Merop enem <=1 S S Pip/T azo <=8 S S Trime th/[place] lfa <=2/3 8 S S Tetra cycli ne <=4 S S Tobra mycin 4 S S TS ED R ESUL TS ED R ESUL Cefta zidim e/Yimi maritza <=8 SSUP SRES LTS SED RESU Nitro furan toin <=32 S S Not Available [facility] (Lab) [address] [facility] [place], [address], 02/03/2024 08:06:09 02/01/20 24 02/01/2024 urina lysis , dipst ick Leukocytes (reference range: negative gisella/ l) Small Not Available [address], [place], [address], 02/01/2024 14:35:32 02/01/20 24 02/01/2024 urina lysis , dipst ick Nitrite (reference rage: negative mg/dl) negati ve Not Available [address], [place], [address], 02/01/2024 14:35:32 02/01/20 24 02/01/2024 urina lysis , dipst ick Urobilinogen (reference range: 0.2-1 mg/dl) 0.2 Not Available [address], [place], [address], 02/01/2024 14:35:32 02/01/20 24 02/01/2024 urina lysis , dipst ick Protein (reference range: negative mg/dl) Negati ve Not Available [address], [place], [address], 02/01/2024 14:35:32 02/01/20 24 02/01/2024 urina lysis , dipst ick pH (reference range: 5-7) 6.0 Not Available [address], [place], [address], 02/01/2024 14:35:32 02/01/20 24 02/01/2024 urina lysis , dipst ick Blood (reference range: negative Adonis/ l) Non-He molyze d: Trace Not Available [address], [place], [address], 02/01/2024 14:35:32 02/01/20 24 02/01/2024 urina lysis , dipst ick Specific [place] (reference range: 1.005-1.030) 1.020 Not Available [address], [place], [address], 02/01/2024 14:35:32 02/01/20 24 02/01/2024 urina lysis , dipst ick Ketone (reference range: negative mg/dl) Negati ve Not Available [address], [place], [address], 02/01/2024 14:35:32 02/01/20 24 02/01/2024 urina lysis , dipst ick Bilirubin (reference range: negative mg/dl) Negati ve Not Available [address], [place], [address], 02/01/2024 14:35:32 02/01/20 24 02/01/2024 urina lysis , dipst ick Glucose (reference range: negative mg/dl) Negati ve Not Available [address], [place], [address], 02/01/2024 14:35:32 02/01/20 24 02/01/2024 urina lysis , dipst ick Appearance Slight ly Cloudy Not Available [address], [place], [address], 02/01/2024 14:35:32 02/01/20 24 02/01/2024 urina lysis , dipst ick Color Yellow Not Available [address], [place], [address], 02/01/2024 14:35:32 03/05/20 03/05/2023 [facility] [address] [place] [address] [phone] Ruddy pichardo Name: GABRIELA BEEBEJones Felix Access ion #: [id number] Sex: F : 1955 2 Locati on: RAD Attend ing Physic lincoln: SACHIN ODELL Orderi Physic lincoln: SACHIN ODELL Exam Date: 03/05/20 23 1:29 PM Exam Name: XR DEXA-H IPS PELVIS SPINE Admitt ing Diagno sis(es ): RADIOL OGY REPORT - FINAL EXAM: XR DEXA-H IPS PELVIS SPINE HISTOR Y: MENOPA USAL COMPAR DREA: 2019 TECHNI QUE: TECHNI QUE: Dual energy x-ray of absorp tion examin ation of the bilate ral hips and lumbar spine in AP projec tion was perfor med. FINDIN GS: Lumbar Spine (L1-L4 ): The mean bone minera l densit y is 1.084 g/cm2 hydrox yapati te, correl ating with a T-scor e of -0.9 repres enting a 1.2% increa se from baseli ne. Bilate ral hips: The mean bone minera l densit y is 0.816 g/cm2 calciu m Page 1 of 2 [facility] Ruddy pichardo Name: GRIS Dick CHRIS Felix Access ion #: [id number] Sex: F : 1955 2 Exam Date: 03/05/20 23 1:29 PM Exam Name: XR DEXA-H IPS PELVIS SPINE Admitt ing Diagno sis(es ): hydrox yapati te, correl ating with a T-scor e of -1.5 repres enting 9% decrea se from baseli ne. IMPRES BRIT: 1. The patien t's lumbar spine T-scor e is consis tent with a normal bone densit y. 2. The patien t's bilate ral hip T-scor e is consis tent with osteop enia. Accord ing to the World Health Organi zation , T-scor e values greate r than -1.0 are normal , values betwee n -1.0 and -2.5 are catego rized as osteop enia, T-scor e of -2.5 or more are catego rized as osteop orosis . Create d and electr onical ly signed by: Edward lopez MD Signed Date: 03/05/20 2:38 PM (CT) Dictat ed by: Edward lopez MD (CT) (CT) Page [address] of [address] ([employer]) [address] [place] [address], [address], 02/01/2024 14:39:34 03/05/20 23 03/05/2023 [facility] [address] [address] [phone] Patien t Name: CHRIS BEEBE Elvira Access ion #: [id number] Sex: F : 1955 2 Locati on: RAD Attend ing Physic lincoln: SACHIN ODELL Orderi Physic lincoln: SACHIN ODELL Exam Date: 03/05/20 1:29 PM Exam Name: MG KAPLANKvng BREAST TIFFANY BILAT Admitt ing Diagno sis(es ): MAMMOG MAREK REPORT - FINAL EXAM: MG SCRN BREAST TIFFANY BILAT HISTOR Y: SCREEN ING MAMMOG EDGAR COMPAR DREA: 2020, 2018 TECHNI QUE: Bilate ral CC and MLO views of the breast s were perfor med. Digita l Mammog marek images were obtain ed. CAD (compu ter assist ed detect ion) was utiliz ed. 3D Digita l breast tomosy nthesi s was perfor med and used in the interp retati on of images . FINDIN GS: There are scatte red areas of fibrog landul ar densit y. No masses , asymme tries, suspic ious calcif icatio ns, or stephanie ectura l Page 1 of 2 [facility] Ruddy pichardo Name: CHRIS BEEBE Access ion #: [id number] Sex: F : 1955 2 Exam Date: 03/05/20 1:29 PM Exam Name: MG SCRN BREAST TIFFANY BILAT Admitt ing Diagno sis(es ): distor tion are seen. IMPRES BRIT: BIRADS 1: Assess ment comple te. Negati ve. Recomm end annual screen ing mammog marek. Accord ing to the [employer] o[employer], yearly mammog fabiana are recomm ended starti ng at age 40 and contin uing as long as the woman is in good health . Clinic al Breast Exam should be part of the period ic health exam-a bout every 3 years for women in their 20s and 30s and every year for women 40 and over. Breast self-e xam is an option for women in their 20s. Any breast change noted on the breast self-e xam she would be report ed prompt ly to the [facility] A negati ve mammog marek report should not discou rage follow -up or biopsy of a clinic ally signif icant findin g and/or abnorm ality. Dense breast tissue may obscur e small neopla sms. This ruddy pichardo has been entere d into a mammog marek remind er system with a target date for her next mammog edgar. Create d and electr onical ly signed by: Edward lopez MD Signed Date: 03/05/20 4:22 PM (CT) Dictat ed by: Edward lopez MD (CT) (CT) Page [address] of [address] (Imaging) [address] [place], [address], 02/01/2024 14:37:28 05/23/2005/23/2024 scremayelin boone breas t tiffany, bilat [facility] [address] [place] [address] Pat[place]e pichardo Name: CHRIS BEEBE Access ion #: [id number] Sex: F : 1955 5 Dictat ed By: Sherry Coburn Attend ing Physic lincoln: SACHIN ODELL Orderi ng Physic lincoln: SACHIN ODELL Exam Date: 2023 13:19 PM Exam Name: MG SCRN BREAST TIFFANY BILAT Admitt ing Diagno sis(es ): SCREEN ING MAMMOG EDGAR WITH TOMOSY NTHESI S: REASON FOR EXAM: SCREEN ING COMPAR DREA: MG SCRN BREAST TIFFANY BILAT 3D on DOS: 03/05/23 , MG SCRN BREAST TIFFANY BILAT 3D on DOS: 1, SCREEN ING BREAST TIFFANY, BILAT 3D on DOS: 05/11/19 , DIGITA L MAMM, BILAT SCREEN ING 2D on DOS: 8, DIGITA L MAMM, BILAT SCREEN ING 2D on DOS: 03/10/17 TECHNI QUE: Bilate ral CC and MLO views obtain ed. Images were obtain ed using a Digita l Tomosy nthesi s Unit. Standa rd 2D and 3D Tomosy nthesi s images were review ed. FINDIN GS: BREAST COMPOS ITION: C - The bilate ral breast s are hetero geneou sly dense, which may obscur e small masses . In the right breast , no asymme trical parenc hymal patter n, stephanie ectura l distor tion, pleomo rphic microc alcifi cation s or masses . In the left breast , no asymme trical parenc hymal patter n, stephanie ectura l distor tion, pleomo rphic microc alcifi cation s or masses . IMPRES BRIT: No findin gs of malign tom. FOLLOW UP RECOMM ENDATI ON: Recomm end annual mammog edgar. BIRADS : 2 - Benign Page 1 [facility] [address] [place] [address] [place] t Name: CHRIS BEEBE Access ion #: [id number] Sex: F : 1955 5 Dictat ed By: Sherry Coburn Attend ing Physic lincoln: PAIGE PRYOR Orderi Physic lincoln: SACHIN ODELL Exam Date: 2023 13:19 PM Exam Name: MG SCRN BREAST TIFFANY BILAT Admitt ing Diagno sis(es ): Electr onical ly Signed by: Sherry Coburn at 2023 14:39: 05 PM Page 2 [email or web address] [facility] ([facility]) [address] [place], [address], 05/24/2024 14:32:04 Result Notes None recorded. Problems Name Problem SNOMED Code Status Onset Date Resolution Date Notes Provider Name and Address Organization Details Recorded Time Irritable bowel syndrome 20293477 Active Not Available [facility] 3 01:25:45 Herpes labialis 5901449 Active Not Available [employer] 3 01:25:45 Acute sinusitis 79354005 Active Not Available [facility] 3 01:25:46 Blood chemistry outside reference range 182939269 Active Not Available [employer] 3 01:25:46 Mammography abnormal 241303180 Active Not Available [facility] 3 01:25:46 Impacted cerumen 43880737 Active Not Available [facility] 3 01:25:46 Obsessive-com pulsive disorder 550573937 Active Not Available [facility] 3 01:25:46 Anxiety state 190658730 Active Not Available [facility] 3 01:25:46 Panic attack 911171366 Active Not Available [facility] 3 01:25:46 Degeneration of lumbar intervertebra l disc 74218442 Active Not Available [facility] 3 01:25:46 Pain in lumbar spine 989854403 Active Not Available [facility] 3 01:25:46 Low back pain 535673795 Active Not Available [facility] 3 01:25:46 Depressive disorder 54408855 Active Not Available [facility] 3 01:25:47 Sinusitis 16679950 Active Not Available [facility] 3 01:25:47 Chronic recurrent sinusitis 645887834 Active Not Available [facility] 3 01:25:47 Anxiety 13629490 Active Not Available [facility] 3 01:25:47 Tinnitus 21754972 Active Not Available [facility] 3 01:25:47 Allergic rhinitis 39970174 Active Not Available [facility] 3 01:25:47 Ulcerative colitis 40388448 Active 2020 Not Available [facility] 3 01:25:47 Rhinitis 10687513 Active Not Available [facility] 3 01:25:47 Diverticulosi s of colon 708557872 Active Not Available [facility] 3 01:25:48 Sciatica 24324105 Active 2022 Gali Valderrama MD [address], [place], [address] , [facility] [employer] [facility] 3 15:26:59 Neuropathy 429186697 Active 2022 Gali Valderrama MD [address], [place] [address], [place], [address] , [facility] 3 17:40:58 Night sweats 21946840 Active 2022 Gali Valderrama MD [address], [place], [address] , [facility] [employer] [facility] Cover [facility] 3 14:28:06 Vitamin D deficiency 88485637 Active 2022 Gali Valderrama MD [address], [place], [address] , [facility] 3 14:30:22 Cobalamin deficiency 297189698 Active 2022 Gali Valderrama MD [address], [place], [address] , [employer] 3 14:30:27 Anemia 164167145 Active 2022 Gali Valderrama MD [address], [place], [address] , [employer] 3 14:31:21 Thyroid function tests abnormal 199037333 Active 2022 Gali Valderrama MD [address], [place], [address] , [employer] 3 08:01:02 Dysuria 74825200 Active 2023 Gali Valderrama MD [address], [place], [address] , [employer] 4 14:35:23 Osteopenia 023016872 Active 2023 dexa 01/25 Gali Valderrama MD [address], [place], [address] , [employer] 4 14:39:27 Mixed anxiety and depressive disorder 073615503 Active 2023 Gali Valderrama MD [address], [place], [address] , [employer] 4 14:50:01 Acute urinary tract infection 423658951 Active 2023 Gali Valderrama MD [address], [place], [address] , [employer] 4 07:45:40 Problem Notes None recorded. Procedures Surgical History Date Name Laterality Status Provider Name and Address Organization Details Recorded Time 02/01/20 24 Medicare Wellness CPT Code, subsequent completed Mona Rodriguez RN [employer] [facility] [employer] 02/01/2024 14:21:16 01/28/20 Medicare Wellness CPT Code, subsequent completed Gali Valderrama MD [address], [place], [address], [place] [facility] 01/27/2023 15:30:32 12/05/19 22 colonoscopy completed Not Available [facility] 12/04/19 23 01:12:49 11/26/19 21 colonoscopy completed Not Available [facility] 12/04/19 23 01:12:49 10/05/19 13 colonoscopy completed Not Available [facility] 12/04/19 23 01:12:49 10/05/19 09 colonoscopy completed Not Available [facility] 12/04/19 23 01:12:49 10/05/19 08 thyroidectomy completed Not Available [facility] 2022 01:12:49 10/05/19 05 Knee arthroscopy/surge ry completed Not Available [facility] 12/03/2022 01:12:49 10/05/19 03 Hysterectomy completed Not Available [facility] 023 01:12:49 10/05/18 91 Sinus Surgery completed Not Available [facility] 2022 01:12:49 10/05/18 80 ligation of bilateral fallopian tubes completed Not Available [facility] 12/03/2022 01:12:49 Imaging Results Imaging Date Name Status LastModified by Organiz ation Details LastModified Time 03/05/2023 DEXA completed [address] ([employer]) [address] [place], [address], 02/01/2024 14:39:34 03/05/2023 screening breast tiffany, bilat completed [email or web address] (Imaging) [address] [place], [address], 02/01/2024 14:37:28 05/23/2024 screening breast tiffany, bilat completed [email or web address] [facility] (Imaging) [address] [place], [address], 05/24/2024 14:32:04 Procedure Notes None recorded. Medical Equipment None Reported. Allergies Allergen ID Allergen Name Allergen Category Reaction Reaction Severity Criticality Documentation Date Start Date Code Code System Note Provider Name and Address Organization Details Recorded Time 7505 Viibryd medicatio n other Not available Not available 12/03/2022 76730 73 RxNorm LEGS TWITC HED/ RLS Not Available [facility] 3 01:42:01 Medications Name Sig Start Date Stop Date Status Note LastModified by Organization Details LastModified Time fluoxetin e 40 mg capsule 1 po qday active Not Available Not Available No t Available cyclobenz aprine 10 mg tablet active Not Available Not Available No t Available prednison e 10 mg tablet TAKE 4 TABLETS BY MOUTH ONCE DAILY FOR 5 DAYS active Not Available Not Available No t Available venlafaxi ne ER 75 mg capsule,e xtended release 24 hr Take 1 capsule every day by oral route. active Not Available Not Available No t Available gabapenti n 600 mg tablet TAKE 1 TABLET BY MOUTH THREE TIMES DAILY active Not Available Not Available No t Available ciproflox acin 750 mg tablet active Not Available Not Available No t Available alprazola m 1 mg tablet TAKE 1 TABLET BY MOUTH THREE TIMES DAILY NEEDED active Not Available Not Available No t Available valacyclo vir 1 gram tablet 1 po bid x 7 days active Not Available Not Available No t Available hydrocodo ne 5 mg-acetam inophen 325 mg tablet Take 1 tablet every 6 hours by oral route as needed. active Not Available Not Available No t Available Celestone Soluspan 6 mg/mL suspensio n for injection 07/26 completed Not Available Not Available Not Available Claritin 10 mg tablet Take 1 tablet every day by oral route. 03/08 completed Not Available Not Available Not Available meloxicam 15 mg tablet TAKE 1 TABLET BY MOUTH EVERY DAY NEEDED FOR JOINT PAIN 01/31 completed Not Available Not Available Not Available phenazopy ridine 200 mg tablet 12/15 completed Not Available Not Available Not Available prednison e 20 mg tablet TAKE 3 TABLETS BY MOUTH ONCE DAILY FOR 5 DAYS 12/12 completed Not Available Not Available Not Available venlafaxi ne ER 150 mg capsule,e xtended release 24 hr TAKE 1 CAPSULE BY MOUTH EVERY DAY active Not Available Not Available No t Available metronida zole 500 mg tablet TAKE 1 TABLET BY MOUTH THREE TIMES DAILY 12/12 completed Not Available Not Available Not Available acetamino phen 300 mg-codein e 30 mg tablet TAKE 1 TABLET BY MOUTH EVERY 6 HOURS NEEDED FOR PAIN 01/31 completed Not Available Not Available Not Available ciproflox acin 500 mg tablet TAKE 1 TABLET BY MOUTH EVERY 12 HOURS FOR 7 DAYS active Not Available Not Available No t Available sulfameth oxazole 800 mg-trimet hoprim 160 mg tablet TAKE 1 TABLET BY MOUTH EVERY 12 HOURS FOR 7 DAYS active Not Available Not Available No t Available hydrocodo ne 10 mg-acetam inophen 325 mg tablet TAKE 1 TABLET BY MOUTH THREE TIMES DAILY FOR 7 DAYS 04/12 completed Not Available Not Available Not Available ondansetr on 8 mg disintegr ating tablet Place 1 tablet 3 times a day by translin gual route as needed. 01/31 completed Not Available Not Available Not Available Depo-Medr ol 80 mg/mL suspensio n for injection 07/26 completed Not Available Not Available Not Available Celebrex 200 mg capsule Take 1 capsule( s) every day by oral route for 30 days. 07/26 completed Not Available Not Available Not Available amoxicill in 875 mg tablet TAKE 1 TABLET BY MOUTH TWICE DAILY 01/31 completed Not Available Not Available Not Available famotidin e 20 mg tablet Take 1 tablet twice a day by oral route. 12/12 completed Not Available Not Available Not Available tamsulosi n 0.4 mg capsule active Not Available Not Available Not Available trazodone 100 mg tablet 1 po qhs active Not Available Not Available Not Available dicyclomi ne 20 mg tablet TAKE 1 TABLET BY MOUTH FOUR TIMES DAILY BEFORE A MEAL AND EVERY NIGHT AT BEDTIME active Not Available Not Available No t Available baclofen 10 mg tablet Take 1 tablet 3 times a day by oral route as needed for 30 days. active Not Available Not Available No t Available pantopraz ole 40 mg tablet,de layed release Take 1 tablet every day by oral route. 01/31 completed Not Available Not Available Not Available ranitidin e 150 mg tablet Take 1 tablet twice a day by oral route. 11/01 completed Not Available Not Available Not Available Nat-D 12 Hour 60 mg-120 mg tablet,ex tended release 1 po bid 04/20 completed Not Available Not Available Not Available gabapenti n 300 mg capsule 1 po qhs active Pain manageme nt increase d Gabapent in to 300 mg BID Not Available Not Available Not Available omeprazol e 20 mg capsule,d elayed release Take 1 capsule every day by oral route. 2014 active Not Available Not Available Not Avai lable magnesium citrate oral solution Drink 1 bottle for colon prep on 12/05 completed Prep to be done on Thursday Not Available Not Available Not Available diclofena c sodium 75 mg tablet,de layed release Take 1 tablet twice a day by oral route as needed. active Not Available Not Available No t Available cephalexi n 500 mg tablet Take 1 tablet twice a day by oral route for 7 days. active Not Available Not Available No t Available monteluka st 10 mg tablet active Not Available Not Available Not Available zolpidem 5 mg tablet 1 po qhs prn insomnia active Not Available Not Available No t Available azelastin e 137 mcg (0.1 %) nasal spray [place] 2 spray(s) twice a day by intranas al route. 01/31 completed Not Available Not Available Not Available budesonid e DR - ER 3 mg capsule,d elayed,ex tended release TAKE 3 CAPSULES BY MOUTH DAILY 07/29 completed Not Available Not Available Not Available levofloxa venkata 500 mg tablet TAKE 1 TABLET BY MOUTH EVERY DAY 12/12 completed Not Available Not Available Not Available propranol ol 20 mg tablet TAKE 1 TABLET BY MOUTH TWICE DAILY 01/31 completed Not Available Not Available Not Available fluoxetin e 20 mg capsule Take 1 capsule every day by oral route for 30 days. 10/31 completed Not Available Not Available Not Available dicyclomi ne 10 mg capsule Take 1 capsule 3 times a day by oral route as needed. active Not Available Not Available No t Available naproxen 500 mg tablet TAKE 1 TABLET BY MOUTH TWICE DAILY NEEDED FOR 30 DAYS 11/01 completed Not Available Not Available Not Available escitalop edgar 10 mg tablet active Not Available Not Available Not Available escitalop edgar 20 mg tablet TK 1 T PO QD active Not Available Not Available No t Available Premarin 0.625 mg tablet 1 po q daily 04/12 completed Not Available Not Available Not Available bupropion HCl XL 300 mg 24 hr tablet, extended release 1 po qday 10/06 completed Not Available Not Available Not Available bupropion HCl XL 150 mg 24 hr tablet, extended release TK 1 T PO QD WITH THE 300 MG Tablet active Not Available Not Available No t Available nitrofura ntoin monohydra te/macroc rystals 100 mg capsule Take 1 capsule every 12 hours by oral route for 7 days. active Not Available Not Available No t Available duloxetin e 20 mg capsule,d elayed release TK ONE C PO BID 04/09 completed Not Available Not Available Not Available duloxetin e 60 mg capsule,d elayed release 1 po bid 03/16 completed Not Available Not Available Not Available Nat-D 24 Hour 180 mg-240 mg tablet,ex tended release Take 1 tablet every day by oral route. 11/01 completed Not Available Not Available Not Available calcium 2020 active Not Available Not Available Not Avai lable Calcium 600 2 TABLETS DAILY 08/20 completed Not Available Not Available Not Available prednison e 12/05 completed Not Available Not Available Not Available Imodium 12/05 completed Not Available Not Available Not Available multivita min 1 PO QD 08/20 completed Not Available Not Available Not Available mesalamin e 1.2 gram tablet,de layed release TAKE 3 TABLETS BY MOUTH DAILY 01/27 completed Not Available Not Available Not Available Xyzal 5 mg tablet Take 1 tablet every day by oral route. 01/31 completed Not Available Not Available Not Available azelastin e 205.5 mcg (0.15 %) nasal spray 2 sprays IEN daily 01/31 completed Not Available Not Available Not Available Probiotic 2020 active Not Available Not Available Not Avai lable Suprep Bowel Prep Kit 17.5 gram-3.13 gram-1.6 gram oral solution TAKE DIRECTED FOR PREP FOR COLONOSC OPY 12/12 completed Not Available Not Available Not Available Viibryd 40 mg tablet TAKE 1 TABLET BY MOUTH EVERY DAY active Not Available Not Available No t Available fluoxetin e 60 mg tablet TK ONE T PO QD 12/05 completed Not Available Not Available Not Available Vicodin 5 mg-300 mg tablet TK 1 T PO Q 4-6 H PRN active Not Available Not Available No t Available vitamin B12 1,000 mcg-folic acid 400 mcg sublingua l tablet Place 1 tablet every day by sublingu al route. 2014 active Not Available Not Available Not Avai lable Claritin- D 12/12 completed Not Available Not Available Not Available Entyvio 300 mg intraveno us solution 300mg IN 250MLS NS at 0,2, and 6 weeks and then every 8 weeks for maintena nce for the patient; s ulcerati ve colitis. Infuse over 30 minutes. active Not Available Not Available No t Available Flonase Allergy Relief 50 mcg/actua tion nasal spray,nancy pension 2 sprays IEN nostril daily 12/16 completed Not Available Not Available Not Available Shingrix (PF) 50 mcg/0.5 mL intramusc ular suspensio n, kit active Not Available Not Available Not Available Vitals Date Recorded Body mass index (BMI) Body height Oxygen saturation Oxygen saturation in Arterial blood by Pulse oximetry Heart rate Body temperature Body weight Systolic blood pressure Diastolic blood pressure Provider Name and Address Organization Details Last Updated DateTime 2 19.1 kg/m2 155.575 cm 96 % 96 % 62 /min 97.2 [degF] 78467.4 2 g 120 mm[Hg] 82 mm[Hg] Not Available [facility] 3 01:19:15 Date Recorded Body mass index (BMI) Body height Oxygen saturation Oxygen saturation in Arterial blood by Pulse oximetry Heart rate Body temperature Body weight Systolic blood pressure Diastolic blood pressure Provider Name and Address Organization Details Last Updated DateTime 2 19.5 kg/m2 155.575 cm 97 % 97 % 69 /min 97.9 [degF] 46131.6 1 g 124 mm[Hg] 80 mm[Hg] Not Available [facility] 3 01:19:15 Date Recorded Body height Body mass index (BMI) Body weight Body temperature Heart rate Oxygen saturation Oxygen saturation in Arterial blood by Pulse oximetry Systolic blood pressure Diastolic blood pressure Provider Name and Address Organization Details Last Updated DateTime 3 155.575 cm 20.8 kg/m2 00902.7 5 g 97.6 [degF] 78 /min 97 % 97 % 136 mm[Hg] 84 mm[Hg] Neda Esparza RN [place] [facility] [place] [facility] 3 14:58:32 Date Recorded Body height Body mass index (BMI) Body weight Body temperature Heart rate Oxygen saturation Oxygen saturation in Arterial blood by Pulse oximetry Systolic blood pressure Diastolic blood pressure Provider Name and Address Organization Details Last Updated DateTime 3 155.575 cm 23.4 kg/m2 70608.0 5 g 97.8 [degF] 95 /min 96 % 96 % 140 mm[Hg] 76 mm[Hg] Mona Rodriguez RN [facility] [employer] [facility] 3 14:17:21 Date Recorded Body height Body mass index (BMI) Body weight Body temperature Oxygen saturation Oxygen saturation in Arterial blood by Pulse oximetry Heart rate Systolic blood pressure Diastolic blood pressure Provider Name and Address Organization Details Last Updated DateTime 4 155.575 cm 24 kg/m2 95117.8 2 g 97.3 [degF] 93 % 93 % 80 /min 142 mm[Hg] 80 mm[Hg] Mona Rodriguez RN [facility] [employer] 4 14:23:17 Social History Question Answer Notes LastModified by Organizat ion Details LastModified Time Tobacco Smoking Status Former Smoker quit age 34 Lena Chris gupta [employer] [facility] [employer] 07/29/2023 14:12:46 Do You Have An Advance Directive? No [id number] Information not available 12/03/2022 What Is Your Level Of Alcohol Consumption? None [id number] Information not available 12/03/2022 Are You Blind Or Do You Have Difficulty Seeing? No [email or web address] Information not available 07/29/2023 What Is Your Level Of Caffeine Consumption? None [email or web address] Information not available 01/27/2023 Are You Deaf Or Do You Have Serious Difficulty Hearing? No [email or web address] Information not available 07/29/2023 What Type Of Diet Are You Following? REGULAR [id number] Information not available 12/03/2022 Have There Been Any Changes To Your Family Or Social Situation? No Information not available 07/29/2023 What Is The Fluoride Status Of Your Home? Unknown [email or web address] Information not available 07/29/2023 Are There Any Guns Present In Your Home? No [email or web address] Information not available 07/29/2023 Do You Use Insect Repellent Routinely? Yes [email or web address] Information not available 07/29/2023 Where Do You Live? SingleLevelHouse [email or web address] Information not available 07/29/2023 Do You Have A Medical Power Of Crime Lab Technician? No Information not available 07/29/2023 What Was The Date Of Your Most Recent Tobacco Screening? 02/01/2024 Information not available 02/01/2024 Do You Have Any Pets? Yes [email or web address] Information not available 07/29/2023 What Is Your Relationship Status? [id number] Information not available 12/03/2022 Do You Use Your Seat Belt Or Car Seat Routinely? Yes [email or web address] Information not available 07/29/2023 Do You Have Smoke And Carbon Monoxide Detectors In Your Home? Yes Information not available 07/29/2023 Are You Passively Exposed To Smoke? No [email or web address] Information not available 07/29/2023 Are There Any Smokers In Your House? No [email or web address] Information not available 07/29/2023 Do You Feel Stressed (tense, Restless, Nervous, Or Anxious, Or Unable To Sleep At Night)? [id number] Information not available 07/29/2023 Do You Use Sunscreen Routinely? Yes [email or web address] Information not available 07/29/2023 Have You Recently Traveled Abroad? No [email or web address] Information not available 07/29/2023 Do You Have Any Dietary Restrictions? No [email or web address] Information not available 07/29/2023 Sex: Unknown Functional Status Question Answer Note LastModified by Organizat ion Details LastModified Time Do you have difficulty walking or climbing stairs? No [email or web address] Information not available 07/29/2023 Do you have transportation difficulties? No Information not available 07/29/2023 Are you able to walk? YESWOREST [email or web address] Information not available 07/29/2023 Do you have difficulty doing errands alone? No Information not available 07/29/2023 Are you able to care for yourself? Yes Information n ot available 07/29/2023 Do you have difficulty dressing or bathing? No [email or web address] Information not available 07/29/2023 What is your exercise level? Occasional [id number] Information not available 12/03/2022 Mental Status Question Answer Note LastModified by Organization D etails LastModified Time Do you have difficulty concentrating, remembering or making decisions? No Information no t available 07/29/2023 Family History Relationship Description Onset Age of this Age Resolved Age Notes LastModified by Organization Details LastModified Time Mother Osteoporosis [email or web address] Not avail able 02/01/2024 14:15:06 Mother Essential hypertension [email or web address] Not available 14:15:06 Mother Spinal stenosis [email or web address] Not available 2023 14:15:06 Mother Myocardial infarction [id number] Not available 12/03/2022 01:12:54 Sister Depressive disorder [id number] Not available 12/03/2022 01:12:55 Brother Depressive disorder [id number] Not available 12/03/2022 01:12:55 Brother Parkinson's disease [email or web address] Not available 2023 14:15:06 Notes:No family h/o breast, colon, ovary cancer Medical History No medical history recorded. Gynecological HistoryNo gynecological history recorded. Obstetrics History GPAL:G 0 P 0 0 0 0 Immunizations Vaccine Type Date Status Note Provider Nam e and Address Organization Details Recorded Time Influenza, split virus, quadrivalent, preservative 0 completed Not Available [facility] 12/03/2022 01:41:31 Influenza, split virus, trivalent, preservative 5 completed Not Available [facility] 12/03/2022 01:41:31 Influenza, high-dose, trivalent, PF 4 completed Not Available [facility] 12/03/2022 01:41:31 Tdap 0 completed Not Available [facility] 12/03/2022 01:41:31 Influenza, high-dose, quadrivalent, PF 1 completed Not Available [facility] 12/03/2022 01:41:31 Influenza, high-dose, quadrivalent, PF 0 completed Not Available [facility] 12/03/2022 01:41:31 pneumococcal polysaccharide PPV23 0 completed Not Available [facility] 12/03/2022 01:41:32 Past Encounters Encounter ID Performer Location Encounter Start Date Encounter Closed Date Diagnosis/Indication Diagnosis SNOMED-CT Code Diagnosis ICD10 Code Diagnosis Note [id number] Gali Valderrama MD [facility] Primary Care [address] [place] [address] 12/12/2020 00:00:00 01/01/2021 17:41:52 [id number] Gali Valderrama MD [facility] Primary Care [facility] [address] [facility] [address] [place] [address] 06/18/2021 00:00:00 06/30/2021 20:47:01 [id number] Gali Valderrama MD [facility] Primary Care [address] [place] [address] 12/16/2021 00:00:00 01/01/2022 19:48:35 [id number] Gali Valderrama MD [facility] Primary Care [address] [place] [address] 08/04/2022 00:00:00 08/04/2022 18:42:34 [id number] Gali Valderrama MD [facility] Primary Care [address] [place] [address] 01/27/2023 14:39:50 01/27/2023 15:38:39 Screening mammography 78127652 Z12.31 Postmenopausal state 764 74317 Z78.0 Sciatica 07364420 M54.31 not in good controlstr [facility] gok to increase gabapentin 600 mg tidf/u by phone in 1 week Adult [facility] th examination 975022432 Z00.00 mammogram order givenDEXA order givenRecom mend yearly flu vaccinesha s received prevnar 13 and pneumovax 23has gotten most updated covid boosterhas completed shingrix seriesColo noscopy done 2021-chron ic active colitis but improved, repeat 5 yearsNo further paps needed, s/p hysterecto myHep c screen negative 2013fastin g labs due in July Screening for disorder 989265702 Z13.9 [id number] Gali Valderrama MD [facility] Primary Care [address] [place] [address] 07/29/2023 14:11:42 07/29/2023 14:42:58 Night sweats 67409139 R61 ? UC vs entyvio s/echeck labsif normal, consider increase venlafaxin e to see if that can help suppress vasomotor symptoms vs trial of veozah Hyperlipid emia screening 840015162 Z13.220 Z79.899 Z13.1 Vitamin D deficiency 347 26418 E55.9 Cobalamin deficiency 190 216576 E53.8 Anemia 372536612 D64.9 [id number] Gali Valderrama MD [facility] Primary Care [facility] [address] [facility] [address] [place] [address] 02/01/2024 14:14:05 02/01/2024 15:10:53 Adult health examination 345852173 Z00.00 mammogram order given-due 03/05/24DEXA osteopenia 01/25 repeat 01/26Recomm end yearly flu vaccinesha s received prevnar 13 and pneumovax 23has gotten most updated covid boosterRSV vaccine given 07/27has completed shingrix seriesColo noscopy done 2021-chron ic active colitis but improved, repeat 5 yearsNo further paps needed, s/p hysterecto myHep c screen negative 2013fastin g labs due in July Dysuria 24613678 R30.0 urine dip suggestive of UTInitrofu rantoin bid x 7 daysstay well hydratedca ll/return if no improvemen t in 1-2 days or sooner if neededrevi ewed s/s that warrant urgent/baylee rgent eval in meantime Screening mammography 24 062088 Z12.31 Osteopenia 890825188 M85 .80 dexa 01/25daily walkingcal cium + D bidrepeat dexa 2024 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 (MEDICARE REPLACEMENT/A DVANTAGE - PPO) [id number] [employer] [id number] [employer] 07/29/2023 1 [employer] (MEDICARE REPLACEMENT/A DVANTAGE - PPO) [id number] [employer] [id number] [employer] 02/01/2024 1 [employer] (MEDICARE REPLACEMENT/A DVANTAGE - PPO) [id number] [employer] [id number] [employer] Notes Date Note Type Note Provider Name and Address Organization Details Recorded Time 01/27/2023 text/html here for medicar e wellness her sciatica on the right side has flared up, it is hard to sit, stand, walk, lay due to pain no chest pain, no sob. Gali Valderrama MD [address], [facility] [address], [place], [address], [facility] 01/28/2023 08:26:17 07/29/2023 text/html Here to f/u on anxiety/depression . Doing well on alprazolam and venlafaxine Er 150 mg daily as prescribed. No selling/lending/sh aring, no heavy etoh or illegal drug use. Having hot flashes/night sweats. She was HRT but after d/cing it she had no further symptoms. Since being dx with UC and starting on entyvio she is having night sweats and having daily hot flashes. Otherwise she is feeling better on entyvio, weight is back up, appetite is better, abd is better. Gali Valderrama MD [address], [address], [place], [address], [employer] 08/03/2023 13:22:58 02/01/2024 text/html here for wellnes s exam. UC symptoms in good control sharon off coffee/caffeine. She is having intermittent urinary frequency and dysuria, no fever, no hematuria. Gali Valderrama MD [address] [facility], [facility] [address], [place], [address], [place] - [facility] 02/01/2024 14:52:11 OBGyn Episode No OBEpisode recorded.
--- OUTSIDE RECORDS SUMMARY | 2025-02-07 15:45 | XMS_ITS | Clinical Summary ---
Author Organization [facility] Address [address] [place] [address] Care Team Providers Care Pr Internship Name Role Phone Ginna Thompson MD Primary Care Provider Source Comments [facility],non-owned Affiliates and Associated Physician Practices is amultiple site organization consisting of ambulatory clinics and hospital sitesin [place], [place], [place] and [place]. This disclosure is being madepursuant to the Care Everywhere program and may not contain all information available regarding this patient. Last updated 18.[facility] Allergies Active Allergy Reactions Criticality Noted Date Comments Vilazodone Hcl Itching 06/09/2017 Immunizations Immunization Administration Dates Next Due FLU VACCINE QUAD IIV4 PF ID 06/30/2016 INFLUENZA VACCINE, QUADR. (F LUZONE; FLULAVAL; FLUARIX; AFLURIA QUADRIVALENT; 6MO+), 0.5 ML (IIV4) 06/13/2019,06/09/2017 iNFLUENZA VACCINE, RECOM-LAMBERT, QUADR. (FLUBLOCK QUADRIVALENT; 18Y+) (RIV4) 06/16/2018 Social History Tobacco Use Types Packs/Day Years Used Date Smoking Tobacco: Never Assessed Comments Unknown Sex and Gender Information Value Date Recorded Sex Assigned at Not on file Legal Sex Female 9:25 AM CDT Gender Identity Not on file Sexual Orientation Not on file Plan of Treatment Upcoming Encounters Date Type Department Care Team (Latest Contact Info) Description 02/16/2025 12:00 PM CDT Appointment [facility] PREADMISSION TESTING [address] [id number] 02/28/2025 7:20 AM CDT Hospital Encounter [facility] [place] - [facility] Op [address] [id number] [place] [address] [place] [address] Surgery General 02/28/2025 7:20 AM CDT - 02/28/2025 9:27 AM CDT Surgery [facility] [place] - [facility] Op [address] [id number] [place] [address] [place] [address] ROBOTIC ASSISTED ARTHROPLASTY KNEE Scheduled Procedures Name Priority Associated Diagnoses Date/Ti me ROBOTIC ASSISTED ARTHROPLAST Y KNEE 02/28/2025 7:20 AM C DT Health Maintenance Due Date Last Done Comments BONE DENSITY TESTING 1954 COLOGUARD (AGES 45-75) - COLON CA SCREENING 1954 COLON MONITORING 1954 COLONOSCOPY - COLON CA SCREENING 1954 CT COLONOGRAPHY - COLON CA SCREENING 1954 Colorectal Cancer Screening 1954 FIT - COLON CA SCREENING 1954 FLEX SIG - COLON CA SCREENING 1954 LIPID TESTING 1954 MAMMOGRAM 1954 HEPATITIS C SCREENING 10/23/1972 DTAP/TDAP/TD VACCINES (1 - Tdap) 1973 PNEUMOCOCCAL VACCINE 50+ (1 of 1 - PCV) 2004 ZOSTER VACCINE (1 of 2) 2004 COVID-19 VACCINE (1 - 2023- season) 2024 DEPRESSION SCREENING 10/05/2024 MEDICARE AWV CALENDAR YEAR 2024 INFLUENZA VACCINE (Season Ended) 2025 06/13/2019, 06/16/2018, 06/09/2017, Additional history exists Respiratory Syncytial Virus (RSV) Vaccine Pt: or over 60 yrs (1 - 1-dose 75+ series) 2029 HEPATITIS B VACCINE Aged Out No longe r eligible based on patient's age to complete this topic HIB VACCINE Aged Out No longer eligi ble based on patient's age to complete this topic HPV VACCINE Aged Out No longer eligi ble based on patient's age to complete this topic MENINGOCOCCAL (Group B) VACCINE SHARED DECISION-MAKING Aged Out No longer eligible based on patient's age to complete this topic MENINGOCOCCAL GROUPS A/C/Y/W VACCINE Aged Out No longer eligible based on patient's age to complete this topic Goals Goal Patient Goal Type Associated Problems Recent Progress Patient-Stated? Author Autogenera leticia Goal Care Plan Autogenerated Problem No Monserrat Wall Additional Health Concerns Active Problems Noted Date Diagnosed Date Autogenerated Problem 01/24/2025 Insurance Care Teams Pr Internship Relationship Specialty Start Date End Date Ginna Thompson MD [address] [place] [phone] PCP - General 12/05/21
--- OUTSIDE RECORDS SUMMARY | 2025-02-07 15:45 | XMS_ITS | Clinical Summary ---
Author Organization [facility] Address [facility] [place] [address] Care Team Providers Care Instrument Repair Technician Name Role Phone Unavailable Primary Care Provider Unavailabl e Social History Tobacco Use Types Packs/Day Years Used Date Smoking Tobacco: Never Assessed Comments Unknown Sex and Gender Information Value Date Recorded Sex Assigned at Not on file Legal Sex Female 6:59 PM CDT Gender Identity Not on file Sexual Orientation Not on file Plan of Treatment Health Maintenance Due Date Last Done Comments Colorectal Cancer Screening Colonoscopy (10 Years) 1954 Hepatitis C 1972 DTaP, Tdap and Td Vaccines ( 1 - Tdap) 1973 Mammogram Screening 1994 Pneumococcal Vaccine: 50+ Ye ars (1 of 1 - PCV) 2004 Zoster Vaccines (1 of 2) 2004 Dexa Scan (General) 2019 COVID-19 Vaccine ( - 2023-2 5 season) 2024 RSV Immunization or 60+ Years (1 - 1-dose 75+ series) 2029 Meningococcal B Vaccine Aged Out No l onger eligible based on patient's age to complete this topic Meningococcal Vaccine Aged Out No kalli josie eligible based on patient's age to complete this topic RSV Immunizations Under 20 Months Aged Out No longer eligible based on patient's age to complete this topic
[2025-02-07 16:45] LABS: Basophils Absolute Auto 0.1 K/mm3 (0.0-0.1); Basophils Percent Auto 1.1 % (0.2-1.2); Eosinophils Absolute Auto 0.1 K/mm3 (0-0.3); Eosinophils Percent Auto 2.2 % (0-4.4); Hematocrit 39.9 % (37.0-47.0); Hemoglobin 12.5 g/dL (12.0-15.0); Immature Granulocyte Absolute 0.02 K/mm3 (0.00-0.031); Immature Granulocyte Percent A 0.3 % (0-0.5); Lymphocytes Absolute Auto 2.43 K/mm3 (0.9-3.2); Lymphocytes Percent Auto 37.4 % (18.3-44.2); Mean Corpuscular HGB Conc 31.3 g/dl (32-36); Mean Corpuscular Hemoglobin 30.5 pg (26-34); Mean Corpuscular Volume 97.3 fl (80-100); Mean Platelet Volume 9.8 fl (7.4-10.4); Monocytes Absolute Auto 0.4 K/mm3 (0.1-0.6); Monocytes Percent Auto 6.2 % (2.6-8.5); Neutrophils Absolute Auto 3.4 K/mm3 (1.3-6.7); Neutrophils Percent Auto 52.8 % (45.5-73.1); Platelet Count Result 284 k/mm3 (150-375); Red Cell Distribution Width 12.3 % (11.5-14.5); White Blood Count 6.5 K/mm3 (4.5-10.0)
[2025-02-07 17:05] LABS: Alanine Aminotransferase 18 U/L (6-35); Albumin Level 4.5 g/dL (3.5-5.1); Alkaline Phosphatase 74 U/L (38-126); Anion Gap 8 mmol/L (4-12); Aspartate Amino Transferase 26 U/L (14-36); Bilirubin,Total 0.3 mg/dL (0.2-1.3); Blood Urea Nitrogen 8 mg/dL (7-17); Calcium 9.3 mg/dL (8.4-10.2); Carbon Dioxide 29 mmol/L (22-30); Chloride 103 mmol/L (98-107); Estimated Glomerular Filt Rate > 60; Glucose 98 mg/dL (65-110); Sodium 140 mmol/L (137-145)
== END 2025-02-07 15:38 | disposition home or self-care (01) ==
LOC: ANHLAB 15:41 → ANHCARD 15:43
PROVIDERS: PCP Nurse Practitioner; Visit Provider Orthopaedic Surgery
DX: Z01.818 Encounter for other preprocedural examination (principal); M17.11 Unilateral primary osteoarthritis, right knee; R94.31 Abnormal electrocardiogram [ECG] [EKG]
CPT/HCPCS: 36415; 80053; 85025; 93005